=== PATIENT | female | born 1965 | race African-American/Black ===

== ENCOUNTER 2024-09-15 08:03 | Emergency (ER) | payer BC, OTHER ==
[~2024-09-15] VITALS: Ht 172.7 cm; Wt 71.6 kg
[2024-09-15] MEDS ORDERED: LORazepam 2 MG TAB PO PRN (09:00)
[2024-09-15 09:11] LABS: HEMATOCRIT 37.7 % (36.0-47.0); HEMOGLOBIN 12.6 g/dl (12.0-15.5); MEAN CORPUSCULAR HEMOGLOBIN 29.6 pg (27.0-33.0); MEAN CORPUSCULAR HGB CONC 33.4 g/dl (32.0-36.5); MEAN CORPUSCULAR VOLUME 88.5 fl (80.0-96.0); PLATELET COUNT, AUTOMATED 193 10^3/uL (150-450); RED BLOOD COUNT 4.26 10^6/uL (4.00-5.40); WHITE BLOOD COUNT 3.8 10^3/uL (4.0-10.0)
[2024-09-15 09:23] LABS: AMPHETAMINES LEVEL URINE NEGATIVE (NEGATIVE); BARBITURATES URINE NEGATIVE (NEGATIVE); BENZODIAZEPINES URINE NEGATIVE (NEGATIVE)
[2024-09-15 09:24] LABS: CANNABINOIDS URINE NEGATIVE (NEGATIVE); COCAINE METABOLITE URINE NEGATIVE (NEGATIVE); METHADONE URINE NEGATIVE (NEGATIVE); OPIATES URINE NEGATIVE (NEGATIVE); PHENCYCLIDINE URINE NEGATIVE (NEGATIVE)
[2024-09-15 09:25] LABS: ETHYL ALCOHOL (ETHANOL) 0.052 % (0.000-0.010)
[2024-09-15 09:27] LABS: ALBUMIN 3.6 G/DL (3.2-5.2); ALKALINE PHOSPHATASE 190 U/L (35-104); ALT/SGPT 137 U/L (7.0-40); AST/SGOT 351 U/L (<34); BILIRUBIN,DIRECT 0.2 MG/DL (<0.4); BILIRUBIN,TOTAL 0.5 MG/DL (0.3-1.2); BLOOD UREA NITROGEN 15 MG/DL (9-23); CALCIUM LEVEL 9.3 MG/DL (8.5-10.1); CARBON DIOXIDE LEVEL 24 MMOL/L (20-31); CHLORIDE LEVEL 103 MMOL/L (98-107); CREATININE FOR GFR 0.44 MG/DL (0.55-1.30); GLOMERULAR FILTRATION RATE > 60.0 (>51); GLUCOSE, FASTING 108 MG/DL (60-100); POTASSIUM SERUM 3.7 MMOL/L (3.5-5.1); SALICYLATE LEVEL < 3.0 MG/DL (<30); SODIUM LEVEL 142 MMOL/L (136-145); TOTAL PROTEIN 8.7 G/DL (5.7-8.2)
[2024-09-15] MEDS ORDERED: ZOLO25TA PO (09:50)
[2024-09-15] MEDS ORDERED: ZOLO50TA PO (09:50)
[2024-09-15] MEDS ORDERED: BUSP5TA PO (09:50)
[2024-09-15] MEDS: MULTIVITAMINS/MINERALS THERAP 1 TAB PO SCH (10:02)
[2024-09-15] MEDS: THIAMINE 100 MG TAB PO SCH (10:02)
[2024-09-15] MEDS: FOLIC ACID 1MG TAB PO SCH (10:02)
[2024-09-15 12:33] VITALS: BP 168/72; TEMP 97.6; O2SAT 99
== END 2024-09-15 12:30 | disposition home or self-care (01) ==
LOC: M ED 08:03
DX: F32.A Depression, unspecified (principal); R03.0 Elevated blood-pressure reading, without diagnosis of hypertension

== ENCOUNTER 2024-09-18 10:50 | Emergency (ER) | payer BC, OTHER ==
[~2024-09-18] VITALS: Ht 172.7 cm; Wt 70.9 kg
[~2024-09-18 10:50] MED LIST: BUSP5TA PO; ZOLO25TA PO; ZOLO50TA PO
[2024-09-18 12:36] LABS: LIPASE 45 U/L (12-53)
[2024-09-18 12:37] LABS: CPK CREATINE PHOSPHOKINASE 99 U/L (34-145)
[2024-09-18 12:38] LABS: ALBUMIN 3.6 G/DL (3.2-5.2); ALKALINE PHOSPHATASE 160 U/L (35-104); ALT/SGPT 117 U/L (7.0-40); AST/SGOT 242 U/L (<34); BILIRUBIN,DIRECT 0.3 MG/DL (<0.4); BILIRUBIN,TOTAL 0.8 MG/DL (0.3-1.2); BLOOD UREA NITROGEN 9 MG/DL (9-23); CALCIUM LEVEL 9.6 MG/DL (8.5-10.1); CARBON DIOXIDE LEVEL 25 MMOL/L (20-31); CHLORIDE LEVEL 104 MMOL/L (98-107); CK-MB VALUE MASS < 1.0 NG/ML (<3.6); CREATININE FOR GFR 0.44 MG/DL (0.55-1.30); GLOMERULAR FILTRATION RATE > 60.0 (>51); GLUCOSE, FASTING 121 MG/DL (60-100); MAGNESIUM LEVEL 1.7 MG/DL (1.8-2.4); MB/CK RELATIVE INDEX 1.01 (< OR =4); POTASSIUM SERUM 3.5 MMOL/L (3.5-5.1); SODIUM LEVEL 141 MMOL/L (136-145); TOTAL PROTEIN 8.6 G/DL (5.7-8.2)
[2024-09-18 12:41] LABS: THYROID STIMULATING HORMONE 0.893 uIU/ML (0.55-4.78)
[2024-09-18 12:42] LABS: FREE T4 1.05 NG/DL (0.89-1.76)
[2024-09-18] MEDS: amLODIPine 5 MG TAB PO ONE (12:54)
[2024-09-18 13:16] LABS: BASO % 0.4 % (0.0-1.0); EOS % 0.2 % (0.0-3.0); HEMATOCRIT 37.7 % (36.0-47.0); HEMOGLOBIN 12.7 g/dl (12.0-15.5); LYMPH % 20.2 % (24.0-44.0); MEAN CORPUSCULAR HEMOGLOBIN 30.4 pg (27.0-33.0); MEAN CORPUSCULAR HGB CONC 33.7 g/dl (32.0-36.5); MEAN CORPUSCULAR VOLUME 90.2 fl (80.0-96.0); MONO # 0.6 10^3/uL (0.0-0.8); MONO % 12.9 % (2.0-8.0); NEUTROPHILS # 3.2 10^3/uL (1.5-8.5); NEUTROPHILS % 66.1 % (36.0-66.0); PLATELET COUNT, AUTOMATED 186 10^3/uL (150-450); RED BLOOD COUNT 4.18 10^6/uL (4.00-5.40); WHITE BLOOD COUNT 4.8 10^3/uL (4.0-10.0)
[2024-09-18] MEDS ORDERED: AMLO1TAB24 PO (13:46)
[2024-09-18 13:57] VITALS: BP 182/84; TEMP 98.8; O2SAT 95
== END 2024-09-18 14:04 | disposition home or self-care (01) ==
LOC: M ED 10:50
DX: I10 Essential (primary) hypertension (principal); Z79.899 Other long term (current) drug therapy

== ENCOUNTER → 2024-11-06 | Outpatient (REF) | payer BC, OTHER ==
[~2024-11-06] MED LIST changes: +AMLO1TAB24 PO
[2024-11-06 17:28] LABS: CREATININE, URINE 128.6 MG/DL; MAU/CREAT RATIO 4.6 MCG/MG (0.0-30.0)
[2024-11-06 17:50] LABS: HEMOGLOBIN A1c 5.2 % (4.0-6.0)
[2024-11-06 18:00] LABS: ALBUMIN 3.9 G/DL (3.2-5.2); ALKALINE PHOSPHATASE 176 U/L (35-104); ALT/SGPT 105 U/L (7.0-40); AST/SGOT 187 U/L (<34); BILIRUBIN,TOTAL 0.7 MG/DL (0.3-1.2); BLOOD UREA NITROGEN 13 MG/DL (9-23); CALCIUM LEVEL 9.4 MG/DL (8.5-10.1); CARBON DIOXIDE LEVEL 26 MMOL/L (20-31); CHLORIDE LEVEL 103 MMOL/L (98-107); CHOLESTEROL LEVEL 228 MG/DL (<200); CHOLESTEROL RISK RATIO 2.26 (<5); CREATININE FOR GFR 0.46 MG/DL (0.55-1.30); GLOMERULAR FILTRATION RATE > 60.0 (>51); GLUCOSE, FASTING 87 MG/DL (60-100); HDL CHOLESTEROL 100.7 MG/DL (>40); LDL CHOLESTEROL 100.5 MG/DL (<100); NON-HDL-C 127.3 MG/DL; POTASSIUM SERUM 4.1 MMOL/L (3.5-5.1); SODIUM LEVEL 141 MMOL/L (136-145); THYROID STIMULATING HORMONE 0.864 uIU/ML (0.55-4.78); TOTAL 25(OH) VITAMIN D 22.8 NG/ML (20.0-100.0); TOTAL PROTEIN 8.5 G/DL (5.7-8.2); TRIGLYCERIDES LEVEL 134 MG/DL (<150)
[2024-11-06 18:01] LABS: FOLATE > 24.00 NG/ML (>5.4); VITAMIN B12 LEVEL 583 PG/ML (211-911)
[2024-11-06 18:01] LABS: Trichomonas vaginalis (AMP) NOT DETECTED (NEGATIVE)
[2024-11-06 18:25] LABS: GC DNA AMPLIFICATION NEGATIVE (NEGATIVE)
[2024-11-06 18:31] LABS: HIV 1&2 SCREEN NEGATIVE (NEGATIVE)
[2024-11-06 18:39] LABS: HEPATITIS C VIRUS ABY INDEX 0.13 INDEX (<0.8)
== END ==
LOC: M LAB REF 16:18
PROVIDERS: ATTEND Physician Assistant
DX: F10.10 Alcohol abuse, uncomplicated (principal); Z11.9 Encounter for screening for infectious and parasitic diseases, unspecified; E66.9 Obesity, unspecified; E55.9 Vitamin D deficiency, unspecified

== ENCOUNTER → 2024-11-26 | Outpatient (REF) | payer BC, OTHER ==
[2024-11-26 16:47] LABS: IRON (FE) 99 UG/DL (50-170); PERCENT SATURATION 32.2 % (13.2-45.0); TOTAL IRON BINDING CAPACITY 307 UG/DL (250-425)
[2024-11-26 16:50] LABS: INR 1.05
[2024-11-26 17:03] LABS: HEPATITIS B SURFACE ANTIGEN NEGATIVE (NEGATIVE)
[2024-11-26 17:24] LABS: HEPATITIS C VIRUS ABY INDEX 0.11 INDEX (<0.8)
[2024-11-26 17:25] LABS: HEPATITIS B CORE ANTIBODY IGM NEGATIVE (NEGATIVE)
== END ==
LOC: M LAB REF 16:31
PROVIDERS: ATTEND Physician Assistant
DX: R74.01 Elevation of levels of liver transaminase levels (principal)

== ENCOUNTER → 2024-12-07 | Outpatient (CLI) | payer BC | LOC: M RAD 08:43 | PROVIDERS: ATTEND Physician Assistant | DX: R60.0 Localized edema (principal) ==

== ENCOUNTER → 2024-12-28 | Outpatient (CLI) | payer BC | LOC: M RAD 07:54 | PROVIDERS: ATTEND Physician Assistant | DX: R74.01 Elevation of levels of liver transaminase levels (principal); K76.0 Fatty (change of) liver, not elsewhere classified; R16.0 Hepatomegaly, not elsewhere classified ==

== ENCOUNTER → 2025-01-20 | Outpatient (REF) | payer OTHER ==
[2025-01-23 16:17] LABS: HPV APTIMA Not Detected (Not Detected)
== END ==
LOC: M LAB REF 11:52
PROVIDERS: ATTEND Physician Assistant
DX: R87.615 Unsatisfactory cytologic smear of cervix (principal)
CPT/HCPCS: 87624; G0123

== ENCOUNTER 2025-02-12 08:53 | Inpatient (IN) | payer BC, OTHER ==
[~2025-02-12] VITALS: Ht 172.7 cm; Wt 71.5 kg
[2025-02-12] MEDS: ATORVASTATIN 20 MG TAB PO SCH (09:00)
[2025-02-12] MEDS ORDERED: ZOLO100T PO (09:33)
[2025-02-12] MEDS ORDERED: LISI40TA4 PO (09:33)
[2025-02-12] MEDS ORDERED: BUSP15TA47 PO (09:33)
[2025-02-12 10:03] LABS: BASO % 0.7 % (0.0-1.0); EOS % 0.5 % (0.0-3.0); HEMOGLOBIN 12.8 g/dl (12.0-15.5); LYMPH # 1.9 10^3/uL (1.5-5.0); LYMPH % 33.2 % (24.0-44.0); MEAN CORPUSCULAR HEMOGLOBIN 29.1 pg (27.0-33.0); MEAN CORPUSCULAR HGB CONC 32.8 g/dl (32.0-36.5); MEAN CORPUSCULAR VOLUME 88.6 fl (80.0-96.0); MONO # 0.6 10^3/uL (0.0-0.8); MONO % 10.8 % (2.0-8.0); NEUTROPHILS # 3.2 10^3/uL (1.5-8.5); NEUTROPHILS % 54.5 % (36.0-66.0); PLATELET COUNT, AUTOMATED 243 10^3/uL (150-450); WHITE BLOOD COUNT 5.9 10^3/uL (4.0-10.0)
[2025-02-12 10:25] LABS: BLOOD UREA NITROGEN 17 MG/DL (9-23); CALCIUM LEVEL 9.3 MG/DL (8.3-10.6); CARBON DIOXIDE LEVEL 23 MMOL/L (20-31); CHLORIDE LEVEL 105 MMOL/L (98-107); CREATININE FOR GFR 0.52 MG/DL (0.55-1.30); GLOMERULAR FILTRATION RATE > 90.0 (>45); GLUCOSE, FASTING 103 MG/DL (74-106); POTASSIUM SERUM 4.4 MMOL/L (3.5-5.1); SODIUM LEVEL 142 MMOL/L (136-145)
[2025-02-12] MEDS ORDERED: ISOVUE-370 76% 100ML VIAL As Ordered ONE (12:24)
[2025-02-12 12:41] LABS: ALBUMIN 3.9 G/DL (3.2-5.2); ALKALINE PHOSPHATASE 174 U/L (35-104); ALT/SGPT 95 U/L (7.0-40); AST/SGOT 214 U/L (<34); BILIRUBIN,DIRECT 0.2 MG/DL (<0.4); BILIRUBIN,TOTAL 0.7 MG/DL (0.3-1.2); CK-MB VALUE MASS < 1.0 NG/ML (<3.6); MAGNESIUM LEVEL 1.8 MG/DL (1.8-2.4); PHOSPHORUS LEVEL 4.1 MG/DL (2.4-5.1); TOTAL PROTEIN 8.2 G/DL (5.7-8.2)
[2025-02-12 12:43] LABS: FREE T4 1.11 NG/DL (0.89-1.76)
[2025-02-12 12:44] LABS: CPK CREATINE PHOSPHOKINASE 114 U/L (34-145); MB/CK RELATIVE INDEX 0.87 (< OR =4)
[2025-02-12 13:12] LABS: CK-MB VALUE MASS < 1.0 NG/ML (<3.6)
[2025-02-12 13:13] LABS: CPK CREATINE PHOSPHOKINASE 104 U/L (34-145); MB/CK RELATIVE INDEX 0.96 (< OR =4)
[2025-02-12] MEDS: ASPIRIN 325 MG TAB PO ONE (13:42)
[2025-02-12] MEDS ORDERED: BUSP5TAB PO (13:57)
[2025-02-12] MEDS ORDERED: BUSP10TA PO (13:57)
[2025-02-12] MEDS ORDERED: HOME MED LIST COMPLETE! XX SCH (14:00)
[2025-02-12] MEDS ORDERED: LORazepam 2 MG TAB PO PRN (14:35)
[2025-02-12] MEDS ORDERED: MOM 30ML SUSPENSION UDC PO PRN (14:35)
[2025-02-12] MEDS ORDERED: ACETAMINOPHEN 325 MG TAB PO PRN (14:35)
[2025-02-12 15:02] LABS: ETHYL ALCOHOL (ETHANOL) 0.064 % (0.000-0.010)
[2025-02-12 15:04] LABS: CHOLESTEROL LEVEL 221 MG/DL (<200); CHOLESTEROL RISK RATIO 2.27 (<5); HDL CHOLESTEROL 97.2 MG/DL (>40); LDL CHOLESTEROL 97.6 MG/DL (<100); MAGNESIUM LEVEL 1.8 MG/DL (1.8-2.4); NON-HDL-C 123.8 MG/DL; TRIGLYCERIDES LEVEL 131 MG/DL (<150)
[2025-02-12] MEDS: LORazepam 0.5 MG TAB PO ONE (15:33)
[2025-02-12 15:47] LABS: HEMOGLOBIN A1c 5.3 % (4.0-6.0)
[2025-02-12 15:55] VITALS: BP 147/88; TEMP 97.9; O2SAT 97
[2025-02-12 20:00] VITALS: BP 180/70
[2025-02-12] MEDS: THIAMINE 100 MG TAB PO SCH (20:06)
[2025-02-12] MEDS: SERTRALINE 100 MG TAB PO SCH (20:06)
[2025-02-12] MEDS: busPIRone 10 MG TAB PO SCH (20:06)
[2025-02-12] MEDS: busPIRone 5 MG TAB PO SCH (20:07)
[2025-02-12 20:09] VITALS: BP 180/70; TEMP 97.5; O2SAT 97
[2025-02-12] MEDS: DOCUSATE SODIUM 100MG CAPSULE PO SCH (20:09)
[2025-02-12 23:00] VITALS: O2SAT 97
[2025-02-13 00:30] VITALS: BP 148/80
[2025-02-13 04:47] VITALS: BP 161/87; TEMP 97.2; O2SAT 98
[2025-02-13 05:00] VITALS: BP 161/87
[2025-02-13 08:00] VITALS: BP 154/82
[2025-02-13] MEDS ORDERED: PROHANCE 279.3MG/ML 15ML VIAL As Ordered ONE (10:15)
[2025-02-13 12:00] VITALS: BP 165/89; TEMP 97.5; O2SAT 99
[2025-02-13] MEDS: ASPIRIN 81MG ENTERIC TABLET PO SCH (12:30)
[2025-02-13] MEDS: FOLIC ACID 1MG TAB PO SCH (12:32)
[2025-02-13] MEDS: MULTIVITAMINS/MINERALS THERAP 1 TAB PO SCH (12:33)
[2025-02-13] MEDS: ENOXAPARIN 40MG/0.4ML SYRINGE (J1650 PER 10MG) SC SCH (12:35)
[2025-02-13] MEDS ORDERED: ATOR40TA75 PO (13:17)
[2025-02-13] MEDS ORDERED: NALT50TA4 PO (13:17)
[2025-02-13] MEDS ORDERED: ASPI81TAEC PO (13:17)
== END 2025-02-13 15:17 | disposition home or self-care (01) | DRG 47 ==
LOC: M ED 08:53 → M ED INP 14:35 → M MSPAV 16:00
PROVIDERS: ADMIT Student in an Organized Health Care Education/Training Program; ATTEND Student in an Organized Health Care Education/Training Program
DX: G45.9 Transient cerebral ischemic attack, unspecified (principal); I10 Essential (primary) hypertension; F10.10 Alcohol abuse, uncomplicated; F41.9 Anxiety disorder, unspecified; F32.A Depression, unspecified; Z79.899 Other long term (current) drug therapy; Z79.82 Long term (current) use of aspirin

== ENCOUNTER → 2025-07-02 | Outpatient (CLI) | payer BC, OTHER ==
[~2025-07-02] MED LIST changes: +AMLO1TAB25 PO; +ASPI-226 PO; +ASPI81TAEC PO; +ATOR40TA75 PO; +BUSP10TA PO; +BUSP15TA47 PO; +BUSP5TAB PO; +LISI40TA10 PO; +MAG100TA PO; +MULTTAB61 PO; +NALT50TA4 PO; +ZOLO100T PO
[2025-07-02 12:26] LABS: CREATININE FOR GFR 0.51 MG/DL (0.55-1.30); GLOMERULAR FILTRATION RATE > 90.0 (>45)
== END ==
LOC: M LAB 11:16
PROVIDERS: ATTEND Psychiatry & Neurology Neurology
DX: I10 Essential (primary) hypertension (principal)

== ENCOUNTER → 2025-07-07 | Outpatient (REF) | payer BC, OTHER ==
[2025-07-07 18:00] LABS: BASO # 0.1 10^3/uL (0.0-0.2); BASO % 1.0 % (0.0-1.0); EOS # 0.1 10^3/uL (0.0-0.5); EOS % 1.0 % (0.0-3.0); LYMPH # 1.4 10^3/uL (1.5-5.0); LYMPH % 28.6 % (24.0-44.0); MONO # 0.5 10^3/uL (0.0-0.8); MONO % 9.7 % (2.0-8.0); NEUTROPHILS # 3.0 10^3/uL (1.5-8.5); NEUTROPHILS % 59.5 % (36.0-66.0); PLATELET COUNT, AUTOMATED 304 10^3/uL (150-450)
[2025-07-07 18:10] LABS: ERYTHROCYTE SEDIMENTATION RATE 90 mm/hr (0-30)
[2025-07-07 18:20] LABS: C REACTIVE PROTEIN QUANTITATIV < 0.50 MG/DL (<1.0)
[2025-07-07 18:21] LABS: ALT/SGPT 109 U/L (7.0-40); AST/SGOT 220 U/L (<34); CALCIUM LEVEL 9.1 MG/DL (8.3-10.6); CARBON DIOXIDE LEVEL 27 MMOL/L (20-31); CHLORIDE LEVEL 103 MMOL/L (98-107); CREATININE FOR GFR 0.61 MG/DL (0.55-1.30); FREE T4 0.98 NG/DL (0.89-1.76); GLOMERULAR FILTRATION RATE > 90.0 (>45); MAGNESIUM LEVEL 1.7 MG/DL (1.8-2.4); POTASSIUM SERUM 3.7 MMOL/L (3.5-5.1); SODIUM LEVEL 142 MMOL/L (136-145)
[2025-07-07 18:23] LABS: VITAMIN B12 LEVEL 592 PG/ML (211-911)
== END ==
LOC: M LAB REF 16:34
PROVIDERS: ATTEND Physician Assistant
DX: R29.898 Other symptoms and signs involving the musculoskeletal system (principal); I10 Essential (primary) hypertension; R23.3 Spontaneous ecchymoses

== ENCOUNTER → 2025-08-14 | Outpatient (REF) | payer BC, OTHER | LOC: M LAB REF 15:07 | PROVIDERS: ATTEND Physician Assistant | DX: R19.7 Diarrhea, unspecified (principal) ==

== ENCOUNTER → 2025-08-24 | Outpatient (CLI) | payer BC | LOC: M PLAIMG 09:41 | PROVIDERS: ATTEND Physician Assistant | DX: M54.50 Low back pain, unspecified (principal); M47.816 Spondylosis without myelopathy or radiculopathy, lumbar region; M48.061 Spinal stenosis, lumbar region without neurogenic claudication ==

== ENCOUNTER 2025-09-04 14:21 | Emergency (ER) | payer BC, OTHER ==
[~2025-09-04] VITALS: Ht 172.7 cm; Wt 69.8 kg
[2025-09-04] MEDS ORDERED: LOSA100T46 (14:53)
[2025-09-04] MEDS ORDERED: MELO15TA28 (14:53)
[2025-09-04] MEDS ORDERED: [UNRECOGNIZED DRUG - OTHER] (14:53)
[2025-09-04] MEDS ORDERED: CHLO125TA (14:53)
[2025-09-04] MEDS ORDERED: METO1TAB32 (14:53)
[2025-09-04] MEDS: ACETAMINOPHEN 325 MG TAB PO ONE (15:28)
[2025-09-04 15:42] LABS: BASO # 0.0 10^3/uL (0.0-0.2); BASO % 0.4 % (0.0-1.0); EOS # 0.0 10^3/uL (0.0-0.5); EOS % 0.3 % (0.0-3.0); LYMPH # 1.5 10^3/uL (1.5-5.0); LYMPH % 19.4 % (24.0-44.0); MONO # 0.7 10^3/uL (0.0-0.8); MONO % 8.4 % (2.0-8.0); NEUTROPHILS # 5.5 10^3/uL (1.5-8.5); NEUTROPHILS % 71.1 % (36.0-66.0); PLATELET COUNT, AUTOMATED 231 10^3/uL (150-450)
[2025-09-04 16:06] LABS: INR 1.12
[2025-09-04 16:14] LABS: CK-MB VALUE MASS 1.3 NG/ML (<3.6)
[2025-09-04 16:16] LABS: ALT/SGPT 105.0 U/L (7.0-40); AST/SGOT 214.0 U/L (<34); CALCIUM LEVEL 8.7 MG/DL (8.3-10.6); CARBON DIOXIDE LEVEL 28.0 MMOL/L (20-31); CHLORIDE LEVEL 103.0 MMOL/L (98-107); CPK CREATINE PHOSPHOKINASE 130.0 U/L (34-145); CREATININE FOR GFR 0.89 MG/DL (0.55-1.30); GLOMERULAR FILTRATION RATE 74.2 (>45); MB/CK RELATIVE INDEX 1.0 (< OR =4); POTASSIUM SERUM 3.6 MMOL/L (3.5-5.1); SODIUM LEVEL 137.0 MMOL/L (136-145)
[2025-09-04 16:17] LABS: THYROXINE (T4) 5.0 UG/DL (4.5-10.9)
[2025-09-04] MEDS ORDERED: ISOVUE-370 76% 100 ML VIAL As Ordered ONE (17:29)
[2025-09-04 17:48] LABS: CK-MB VALUE MASS 1.3 NG/ML (<3.6)
[2025-09-04 17:49] LABS: CPK CREATINE PHOSPHOKINASE 127.0 U/L (34-145); MB/CK RELATIVE INDEX 1.02 (< OR =4)
[2025-09-04 18:47] LABS: KETONE, URINE AUTO RFX NEGATIVE (NEGATIVE); LEUKOCYTE ESTERASE UR AUTO RFX NEGATIVE (NEGATIVE); MUCUS, URINE RFX SMALL (NEGATIVE); NITRITE, URINE AUTO RFX NEGATIVE (NEGATIVE); RBC, URINE AUTO RFX 0 /HPF (0-3); SQUAM EPITHELIAL CELL UR AURFX 0 /HPF (0-6); WBC, URINE AUTO RFX 0 /HPF (0-3)
[2025-09-04 19:15] VITALS: BP 142/67; TEMP 97.5; O2SAT 100
== END 2025-09-04 19:27 | disposition home or self-care (01) ==
LOC: M ED 14:21
DX: R22.42 Localized swelling, mass and lump, left lower limb (principal); B34.9 Viral infection, unspecified; I10 Essential (primary) hypertension; F41.9 Anxiety disorder, unspecified; F32.A Depression, unspecified; F12.10 Cannabis abuse, uncomplicated; Z79.82 Long term (current) use of aspirin; Z79.899 Other long term (current) drug therapy; Z88.8 Allergy status to other drugs, medicaments and biological substances
CPT/HCPCS: 71045; 71275; 80048; 80076; 81001; 82550; 82553; 83605; 83880; 84436; 84443; 84484; 85025; 85610; 85730; 87040; 87486; 87581; 87633; 87798; 93005; 93041; 93970; 94760; 99285; Q9967